=== PATIENT | female | born 1955 | race Hispanic/Latino ===

== ENCOUNTER 2018-11-24 09:45 | Emergency (ER) | payer SELFPAY ==
[2018-11-24] MEDS ORDERED: NACL 0.9% 1000 ML 1,000 ML IV ONE ×2 (10:08→11:07)
--- NOTE | 2018-11-24 10:09 | Emergency Department Report ---
ED Altered Mental Status HPI - General Chief Complaint: Altered Mental Status Stated Complaint: UNRESPONSIVE Time Seen by Provider: 11/24/18 09:45 Source: EMS Mode of arrival: Stretcher Limitations: Altered Mental Status - History of Present Illness Initial Comments: Patient is a 63-year-old female that presents from a psychiatric facility for unresponsiveness. Patient brought in by EMS. Patient at a psychiatric facility for 1013. History of per EMS and sitter. Per EMS patient was found in a wheelchair slumped over. EMS states the patient is responsive to painful stimuli. MD Complaint: altered mental status, decreased responsiveness -: Sudden Severity: severe Consistency of Symptoms: constant - Related Data Home Medications Medication Instructions Recorded Confirmed Last Taken Acetaminophen [Acetaminophen 8 650 mg PO PRN 11/24/18 11/24/18 Unknown Hour] Cyclobenzaprine [Flexeril] 10 mg PO BID PRN 11/24/18 11/24/18 Unknown FLUoxetine HCL [PROzac] 40 mg PO QDAY 11/24/18 11/24/18 Unknown Haloperidol [Haldol] 5 mg PO BID 11/24/18 11/24/18 Unknown Magnesium Hydroxide [Milk of 30 ml PO Q12H 11/24/18 11/24/18 Unknown Magnesia] Montelukast [Singulair] 10 mg PO QPM 11/24/18 11/24/18 Unknown Omeprazole 40 mg PO DAILY 11/24/18 11/24/18 Unknown Ziprasidone [Geodon] 20 mg PO BID 11/24/18 11/24/18 Unknown diphenhydrAMINE [Benadryl CAP] 50 mg PO QHS PRN 11/24/18 11/24/18 Unknown traMADol [Ultram] 50 mg PO Q6HR PRN 11/24/18 11/24/18 Unknown Allergies Allergy/AdvReac Type Severity Reaction Status Date / Time No Known Allergies Allergy Unverified 11/24/18 11:30 ED Review of Systems ROS: Stated complaint: UNRESPONSIVE Other details as noted in HPI Comment: Unobtainable due to pts medical conditions ED Past Medical Hx - Past Medical History Previous Medical History?: Yes Hx Psychiatric Treatment: Yes - Surgical History Past Surgical History?: No Additional Surgical History: unknown due to AMS - Family History Family history: no significant - Social History Smoking Status: Unknown if ever smoked Substance Use Type: None - Medications Home Medications: Home Medications Medication Instructions Recorded Confirmed Last Taken Type Acetaminophen [Acetaminophen 8 650 mg PO PRN 11/24/18 11/24/18 Unknown History Hour] Cyclobenzaprine [Flexeril] 10 mg PO BID PRN 11/24/18 11/24/18 Unknown History FLUoxetine HCL [PROzac] 40 mg PO QDAY 11/24/18 11/24/18 Unknown History Haloperidol [Haldol] 5 mg PO BID 11/24/18 11/24/18 Unknown History Magnesium Hydroxide [Milk of 30 ml PO Q12H 11/24/18 11/24/18 Unknown History Magnesia] Montelukast [Singulair] 10 mg PO QPM 11/24/18 11/24/18 Unknown History Omeprazole 40 mg PO DAILY 11/24/18 11/24/18 Unknown History Ziprasidone [Geodon] 20 mg PO BID 11/24/18 11/24/18 Unknown History diphenhydrAMINE [Benadryl CAP] 50 mg PO QHS PRN 11/24/18 11/24/18 Unknown History traMADol [Ultram] 50 mg PO Q6HR PRN 11/24/18 11/24/18 Unknown History ED Physical Exam - General Limitations: Altered Mental Status, Physical Limitation General appearance: lethargic - Head Head exam: Present: atraumatic, normocephalic - Eye Eye exam: Present: normal appearance, PERRL Pupils: Present: normal accommodation - ENT ENT exam: Present: mucous membranes moist - Neck Neck exam: Present: normal inspection - Respiratory Respiratory exam: Present: normal lung sounds bilaterally. Absent: respiratory distress, wheezes, rales, rhonchi - Cardiovascular Cardiovascular Exam: Present: regular rate, normal rhythm. Absent: systolic murmur, diastolic murmur, rubs, gallop - GI/Abdominal GI/Abdominal exam: Present: soft, normal bowel sounds - Rectal Rectal exam: Present: deferred - Extremities Exam Extremities exam: Present: normal inspection - Back Exam Back exam: Present: normal inspection - Neurological Exam Neurological exam: Present: altered - Expanded Neurological Exam Expanded Best Eye Response (Julio): (2) open to pain Best Motor Response (Julio): (4) withdraws to pain Best Verbal Response (Julio): (2) incomprehsible sounds Julio Total: 8 - Psychiatric Psychiatric exam: Present: normal affect, normal mood - Skin Skin exam: Present: warm, dry, intact, normal color. Absent: rash - Assessment Assessment Interval: Baseline - Level of Consciousness 1a. Level of Consciousness: arousable/minor stimuli - LOC Questions 1b. LOC Questions: answers no questions correctly - LOC Command 1c. LOC Commands: performs tasks correctly - Best Gaze 2. Best Gaze: normal - Visual 3. Visual: no visual loss - Facial Palsy 4. Facial Palsy: normal symmetrical movement - Motor Arm 5a. Motor Arm Left: some gravity effort 5b. Motor Arm Right: some gravity effort - Motor Leg 6a. Motor Leg Left: some gravity effort 6b. Motor Leg Right: some gravity effort - Limb Ataxia 7. Limb Ataxia: absent - Sensory 8. Sensory: normal - Best Language 9. Best Language: no aphasia - Dysarthria 10. Dysarthria: normal - Extinction and Inattention 11. Extinction/Inattention: no abnormality - Scoring Total Score: 11 Stroke Severity: Moderate Stroke ED Course Vital Signs 11/24/18 11/24/18 09:46 10:51 Temperature 97.5 F L Pulse Rate 95 H 101 H Respiratory 16 18 Rate Blood Pressure 148/85 Blood Pressure 137/85 [Left] O2 Sat by Pulse 100 98 Oximetry - Reevaluation(s) Reevaluation #1: Patient more responsive. Patient is lethargic but is answering some simple yes no questions. She is following commands and moving all 4 limbs equally. Patient open eyes to voice 11/24/18 10:54 Patient answered questions more appropriately. Patient is A&O 1. Patient states she's not sure why she was unresponsive. Patient denies taking extra medications. Sitter at bedside states that the patient just arrived last night to [facility] [place] last night.. 11/24/18 11:32 - Consultations Consultation #1: Hospitalist consulted for admission. Hospitalist to admit patient. Hospitalist to assume care patient. 11/24/18 12:05 - Lab Data Result diagrams: 11/24/18 10:14 11/24/18 10:14 Lab Results 11/24/18 11/24/18 11/24/18 Range/Units 09:55 10:14 10:14 WBC 9.0 (4.5-11.0) K/mm3 RBC 4.88 (3.65-5.03) M/mm3 Hgb 14.4 H (10.1-14.3) gm/dl Hct 43.5 H (30.3-42.9) % MCV 89 (79-97) fl MCH 30 (28-32) pg MCHC 33 (30-34) % RDW 15.2 (13.2-15.2) % Plt Count 228 (140-440) K/mm3 Lymph % (Auto) 20.2 (13.4-35.0) % [place] % (Auto) 6.2 (0.0-7.3) % Eos % (Auto) 8.0 H (0.0-4.3) % Baso % (Auto) 0.4 (0.0-1.8) % Lymph # 1.8 (1.2-5.4) K/mm3 [place] # 0.6 (0.0-0.8) K/mm3 Eos # 0.7 H (0.0-0.4) K/mm3 Baso # 0.0 (0.0-0.1) K/mm3 Seg Neutrophils % 65.2 (40.0-70.0) % Seg Neutrophils # 5.9 (1.8-7.7) K/mm3 Sodium 139 (137-145) mmol/L Potassium 4.0 (3.6-5.0) mmol/L Chloride 99.4 (98-107) mmol/L Carbon Dioxide 24 (22-30) mmol/L Anion Gap 20 mmol/L BUN 9 (7-17) mg/dL Creatinine 0.7 (0.7-1.2) mg/dL Estimated GFR > 60 ml/min BUN/Creatinine Ratio 13 % Glucose 117 H (65-100) mg/dL POC Glucose 113 H (70-105) Lactic Acid (0.7-2.0) mmol/L Calcium 9.2 (8.4-10.2) mg/dL Total Bilirubin 0.50 (0.1-1.2) mg/dL AST 24 (5-40) units/L ALT 61 H (7-56) units/L Alkaline Phosphatase 106 (35-129) units/L Troponin T < 0.010 (0.00-0.029) ng/mL Total Protein 7.1 (6.3-8.2) g/dL Albumin 4.0 (3.9-5) g/dL Albumin/Globulin Ratio 1.3 % Urine Color (Yellow) Urine Turbidity (Clear) Urine pH (5.0-7.0) Ur Specific [place] (1.003-1.030) Urine Protein (Negative) mg/dL Urine Glucose (UA) (Negative) mg/dL Urine Ketones (Negative) mg/dL Urine Blood (Negative) Urine Nitrite (Negative) Urine Bilirubin (Negative) Urine Urobilinogen (<2.0) mg/dL Ur Leukocyte Esterase (Negative) Urine WBC (Auto) (0.0-6.0) /HPF Urine RBC (Auto) (0.0-6.0) /HPF Salicylates (2.8-20.0) mg/dL Urine Opiates Screen Urine Methadone Screen Acetaminophen (10.0-30.0) ug/mL Ur Barbiturates Screen Ur Phencyclidine Scrn Ur Amphetamines Screen U Benzodiazepines Scrn Urine Cocaine Screen U Marijuana (THC) Screen Drugs of Abuse Note Plasma/Serum Alcohol (0-0.07) % 11/24/18 11/24/18 11/24/18 Range/Units 10:14 10:14 10:14 WBC (4.5-11.0) K/mm3 RBC (3.65-5.03) M/mm3 Hgb (10.1-14.3) gm/dl Hct (30.3-42.9) % MCV (79-97) fl MCH (28-32) pg MCHC (30-34) % RDW (13.2-15.2) % Plt Count (140-440) K/mm3 Lymph % (Auto) (13.4-35.0) % [place] % (Auto) (0.0-7.3) % Eos % (Auto) (0.0-4.3) % Baso % (Auto) (0.0-1.8) % Lymph # (1.2-5.4) K/mm3 [place] # (0.0-0.8) K/mm3 Eos # (0.0-0.4) K/mm3 Baso # (0.0-0.1) K/mm3 Seg Neutrophils % (40.0-70.0) % Seg Neutrophils # (1.8-7.7) K/mm3 Sodium (137-145) mmol/L Potassium (3.6-5.0) mmol/L Chloride (98-107) mmol/L Carbon Dioxide (22-30) mmol/L Anion Gap mmol/L BUN (7-17) mg/dL Creatinine (0.7-1.2) mg/dL Estimated GFR ml/min BUN/Creatinine Ratio % Glucose (65-100) mg/dL POC Glucose (70-105) Lactic Acid 3.30 H* (0.7-2.0) mmol/L Calcium (8.4-10.2) mg/dL Total Bilirubin (0.1-1.2) mg/dL AST (5-40) units/L ALT (7-56) units/L Alkaline Phosphatase (35-129) units/L Troponin T (0.00-0.029) ng/mL Total Protein (6.3-8.2) g/dL Albumin (3.9-5) g/dL Albumin/Globulin Ratio % Urine Color (Yellow) Urine Turbidity (Clear) Urine pH (5.0-7.0) Ur Specific [place] (1.003-1.030) Urine Protein (Negative) mg/dL Urine Glucose (UA) (Negative) mg/dL Urine Ketones (Negative) mg/dL Urine Blood (Negative) Urine Nitrite (Negative) Urine Bilirubin (Negative) Urine Urobilinogen (<2.0) mg/dL Ur Leukocyte Esterase (Negative) Urine WBC (Auto) (0.0-6.0) /HPF Urine RBC (Auto) (0.0-6.0) /HPF Salicylates < 0.3 L (2.8-20.0) mg/dL Urine Opiates Screen Urine Methadone Screen Acetaminophen < 5.0 L (10.0-30.0) ug/mL Ur Barbiturates Screen Ur Phencyclidine Scrn Ur Amphetamines Screen U Benzodiazepines Scrn Urine Cocaine Screen U Marijuana (THC) Screen Drugs of Abuse Note Plasma/Serum Alcohol (0-0.07) % 11/24/18 11/24/18 11/24/18 Range/Units 10:14 10:17 10:17 WBC (4.5-11.0) K/mm3 RBC (3.65-5.03) M/mm3 Hgb (10.1-14.3) gm/dl Hct (30.3-42.9) % MCV (79-97) fl MCH (28-32) pg MCHC (30-34) % RDW (13.2-15.2) % Plt Count (140-440) K/mm3 Lymph % (Auto) (13.4-35.0) % [place] % (Auto) (0.0-7.3) % Eos % (Auto) (0.0-4.3) % Baso % (Auto) (0.0-1.8) % Lymph # (1.2-5.4) K/mm3 [place] # (0.0-0.8) K/mm3 Eos # (0.0-0.4) K/mm3 Baso # (0.0-0.1) K/mm3 Seg Neutrophils % (40.0-70.0) % Seg Neutrophils # (1.8-7.7) K/mm3 Sodium (137-145) mmol/L Potassium (3.6-5.0) mmol/L Chloride (98-107) mmol/L Carbon Dioxide (22-30) mmol/L Anion Gap mmol/L BUN (7-17) mg/dL Creatinine (0.7-1.2) mg/dL Estimated GFR ml/min BUN/Creatinine Ratio % Glucose (65-100) mg/dL POC Glucose (70-105) Lactic Acid (0.7-2.0) mmol/L Calcium (8.4-10.2) mg/dL Total Bilirubin (0.1-1.2) mg/dL AST (5-40) units/L ALT (7-56) units/L Alkaline Phosphatase (35-129) units/L Troponin T (0.00-0.029) ng/mL Total Protein (6.3-8.2) g/dL Albumin (3.9-5) g/dL Albumin/Globulin Ratio % Urine Color Yellow (Yellow) Urine Turbidity Clear (Clear) Urine pH 8.0 H (5.0-7.0) Ur Specific [place] 1.011 (1.003-1.030) Urine Protein <15 mg/dl (Negative) mg/dL Urine Glucose (UA) Neg (Negative) mg/dL Urine Ketones Neg (Negative) mg/dL Urine Blood Neg (Negative) Urine Nitrite Neg (Negative) Urine Bilirubin Neg (Negative) Urine Urobilinogen < 2.0 (<2.0) mg/dL Ur Leukocyte Esterase Neg (Negative) Urine WBC (Auto) < 1.0 (0.0-6.0) /HPF Urine RBC (Auto) 2.0 (0.0-6.0) /HPF Salicylates (2.8-20.0) mg/dL Urine Opiates Screen Presumptive negative Urine Methadone Screen Presumptive negative Acetaminophen (10.0-30.0) ug/mL Ur Barbiturates Screen Presumptive negative Ur Phencyclidine Scrn Presumptive negative Ur Amphetamines Screen Presumptive negative U Benzodiazepines Scrn Presumptive negative Urine Cocaine Screen Presumptive negative U Marijuana (THC) Screen Presumptive negative Drugs of Abuse Note Disclamer Plasma/Serum Alcohol < 0.01 (0-0.07) % 11/24/18 Range/Units 11:43 WBC (4.5-11.0) K/mm3 RBC (3.65-5.03) M/mm3 Hgb (10.1-14.3) gm/dl Hct (30.3-42.9) % MCV (79-97) fl MCH (28-32) pg MCHC (30-34) % RDW (13.2-15.2) % Plt Count (140-440) K/mm3 Lymph % (Auto) (13.4-35.0) % [place] % (Auto) (0.0-7.3) % Eos % (Auto) (0.0-4.3) % Baso % (Auto) (0.0-1.8) % Lymph # (1.2-5.4) K/mm3 [place] # (0.0-0.8) K/mm3 Eos # (0.0-0.4) K/mm3 Baso # (0.0-0.1) K/mm3 Seg Neutrophils % (40.0-70.0) % Seg Neutrophils # (1.8-7.7) K/mm3 Sodium (137-145) mmol/L Potassium (3.6-5.0) mmol/L Chloride (98-107) mmol/L Carbon Dioxide (22-30) mmol/L Anion Gap mmol/L BUN (7-17) mg/dL Creatinine (0.7-1.2) mg/dL Estimated GFR ml/min BUN/Creatinine Ratio % Glucose (65-100) mg/dL POC Glucose (70-105) Lactic Acid 1.70 (0.7-2.0) mmol/L Calcium (8.4-10.2) mg/dL Total Bilirubin (0.1-1.2) mg/dL AST (5-40) units/L ALT (7-56) units/L Alkaline Phosphatase (35-129) units/L Troponin T (0.00-0.029) ng/mL Total Protein (6.3-8.2) g/dL Albumin (3.9-5) g/dL Albumin/Globulin Ratio % Urine Color (Yellow) Urine Turbidity (Clear) Urine pH (5.0-7.0) Ur Specific [place] (1.003-1.030) Urine Protein (Negative) mg/dL Urine Glucose (UA) (Negative) mg/dL Urine Ketones (Negative) mg/dL Urine Blood (Negative) Urine Nitrite (Negative) Urine Bilirubin (Negative) Urine Urobilinogen (<2.0) mg/dL Ur Leukocyte Esterase (Negative) Urine WBC (Auto) (0.0-6.0) /HPF Urine RBC (Auto) (0.0-6.0) /HPF Salicylates (2.8-20.0) mg/dL Urine Opiates Screen Urine Methadone Screen Acetaminophen (10.0-30.0) ug/mL Ur Barbiturates Screen Ur Phencyclidine Scrn Ur Amphetamines Screen U Benzodiazepines Scrn Urine Cocaine Screen U Marijuana (THC) Screen Drugs of Abuse Note Plasma/Serum Alcohol (0-0.07) % - EKG Data -: EKG Interpreted by [place] EKG shows normal: sinus rhythm, axis, intervals, QRS complexes, ST-T waves Rate: normal - Radiology Data Radiology results: report reviewed CT HEAD WITHOUT CONTRAST INDICATION: Altered mental status. COMPARISON: 02/03/2012. FINDINGS: Noncontrast head CT again demonstrates symmetric, age-appropriate ventricles and sulci and few bilateral basal ganglia lacunar infarcts measuring 4-5 mm as on axial images 25-26. Slight periventricular hypodensities. No definite acute infarct, hemorrhage, mass effect or midline shift. No abnormal extra axial fluid collections. Normal posterior fossa with preserved basilar cisterns. Normal imaged eye globes. Mild left frontal sinus mucosal thickening now noted. Clear remainder imaged paranasal sinuses in this patient with sinus surgery changes again noted. Normal calvarium and scalp. CONCLUSION: No acute intracranial CT abnormality with slight left frontal sinus mucosal thickening now seen, as described. Please correlate. PORTABLE CHEST INDICATION: Altered mental status. COMPARISON: 02/16/2012 CXR. FINDINGS: Portable, frontal chest radiograph again demonstrates a normal cardiomediastinal silhouette. Lung markings now mildly prominent, nonspecific and may in part be technical. Subtle left upper to midlung peripheral haziness, presumed slight atelectasis or infiltrate. No pleural effusions or CHF. Few bony degenerative changes. EKG leads. Stable probable cholecystectomy clips. CONCLUSION: Findings, as described. - Medical Decision Making Patient is a 63-year-old female presents emergency room with unresponsive episod e. Patient given fluids and time and patient became more arousable. Patient's labs are unremarkable except for lactic acidosis. It is unclear what has caused this patient's unresponsive episode. Critical Care Time: Yes Critical care attestation.: If time is entered above; I have spent that time in minutes in the direct care of this critically ill patient, excluding procedure time. Critical Care Time: 45 minutes ED Disposition Clinical Impression: Unresponsive state, Lactic acid acidosis Altered mental state Qualifiers: Altered mental status type: unspecified Qualified Code(s): R41.82 - Altered mental status, unspecified Disposition: DC-09 OP ADMIT IP TO THIS HOSP Is pt being admited?: Yes Does the pt Need Aspirin: No Condition: Critical Time of Disposition: 12:38
[2018-11-24 10:40] LABS: Basophils % (Auto) 0.4 % (0.0-1.8); Eosinophils # (Auto) 0.7 K/mm3 (0.0-0.4); Hematocrit 43.5 % (30.3-42.9); Hemoglobin 14.4 gm/dl (10.1-14.3); Lymphocytes # (Auto) 1.8 K/mm3 (1.2-5.4); Lymphocytes % (Auto) 20.2 % (13.4-35.0); Mean Corpuscular HGB Conc 33 % (30-34); Mean Corpuscular Volume 89 fl (79-97); Monocytes # (Auto) 0.6 K/mm3 (0.0-0.8); Monocytes % (Auto) 6.2 % (0.0-7.3); Platelet Count 228 K/mm3 (140-440); Red Blood Count 4.88 M/mm3 (3.65-5.03); Red Cell Distribution Width 15.2 % (13.2-15.2)
--- NOTE | 2018-11-24 10:49 | Cat Scan Report ---
CT HEAD WITHOUT CONTRAST INDICATION: Altered mental status. COMPARISON: 02/03/2012. FINDINGS: Noncontrast head CT again demonstrates symmetric, age-appropriate ventricles and sulci and few bilateral basal ganglia lacunar infarcts measuring 4-5 mm as on axial images 25-26. Slight periventricular hypodensities. No definite acute infarct, hemorrhage, mass effect or midline shift. No abnormal extra axial fluid collections. Normal posterior fossa with preserved basilar cisterns. Normal imaged eye globes. Mild left frontal sinus mucosal thickening now noted. Clear remainder imaged paranasal sinuses in this patient with sinus surgery changes again noted. Normal calvarium and scalp. CONCLUSION: No acute intracranial CT abnormality with slight left frontal sinus mucosal thickening now seen, as described. Please correlate. Thank you for the opportunity to participate in this patient's care.
[2018-11-24 11:01] LABS: Alanine Aminotransferase 61 units/L (7-56); BUN/Creatinine Ratio 13; Blood Urea Nitrogen 9 mg/dL (7-17); Calcium 9.2 mg/dL (8.4-10.2); Hemolysis Index 10
[2018-11-24 11:20] LABS: Bilirubin,Urine NEG (Negative); Blood,Urine NEG (Negative); Color,Urine Yellow (Yellow); Protein,Urine <15 mg/dL mg/dL (Negative); Urobilinogen,Urine < 2.0 mg/dL (<2.0); WBC,Urine < 1.0 /HPF (0.0-6.0)
[2018-11-24] MEDS ORDERED: MAXIPIME/NS 2 GM/100 ML 2 GM/100 ML BAG IV ONE (11:23)
[2018-11-24 11:27] LABS: Amphetamine Screen,Urine PRESUMPTIVE NEGATIVE; Benzodiazepines Screen,Urine PRESUMPTIVE NEGATIVE; Cannabinoid Screen,Urine PRESUMPTIVE NEGATIVE; Cocaine Screen,Urine PRESUMPTIVE NEGATIVE; Methadone Screen,Urine PRESUMPTIVE NEGATIVE; Opiate Screen,Urine PRESUMPTIVE NEGATIVE
--- NOTE | 2018-11-24 11:39 | XRay Report ---
PORTABLE CHEST INDICATION: Altered mental status. COMPARISON: 02/16/2012 CXR. FINDINGS: Portable, frontal chest radiograph again demonstrates a normal cardiomediastinal silhouette. Lung markings now mildly prominent, nonspecific and may in part be technical. Subtle left upper to midlung peripheral haziness, presumed slight atelectasis or infiltrate. No pleural effusions or CHF. Few bony degenerative changes. EKG leads. Stable probable cholecystectomy clips. CONCLUSION: Findings, as described. Thank you for the opportunity to participate in this patient's care.
[2018-11-24 19:08] VITALS: BP 146/89
--- NOTE | 2018-11-24 20:25 | Event Note ---
Date: 11/24/18 63 YO Female with Major Depression currently an inpatient under 1013. Pt transported to [facility] for evaluation. Pt seen and evaluated in ED. Pt found to have no significant findings on physical exam. Pt is tearful, and distressed regarding placing her father in hospice care. Pt acknowledges feeling helpless, and hopeless and has not been evaluated by a Psychiatrist. Pt medically optimized and back to usual state of health. No active medical findings. Pt medically optimized. Pt discharged to inpatient Psychiatry. ED Physical Exam - General Limitations: General appearance: Alert,Oriented x3 - Head Head exam: Present: atraumatic, normocephalic - Eye Eye exam: Present: normal appearance, PERRL Pupils: Present: normal accommodation - ENT ENT exam: Present: mucous membranes moist - Neck Neck exam: Present: normal inspection - Respiratory Respiratory exam: Present: normal lung sounds bilaterally. Absent: respiratory distress, wheezes, rales, rhonchi - Cardiovascular Cardiovascular Exam: Present: regular rate, normal rhythm. Absent: systolic murmur, diastolic murmur, rubs, gallop - GI/Abdominal GI/Abdominal exam: Present: soft, normal bowel sounds - Rectal Rectal exam: Present: deferred - Extremities Exam Extremities exam: Present: normal inspection - Back Exam Back exam: Present: normal inspection - Neurological Exam Neurological exam: Present: altered - Expanded Neurological Exam [place] Total: 15 - Psychiatric Psychiatric exam: Present: normal affect, normal mood - Skin Skin exam: Present: warm, dry, intact, normal color. Absent: rash -
== END 2018-11-24 20:00 | disposition admitted as inpatient to this hospital (09) ==
LOC: EEVIPCON 09:45 → ED 09:45
DX: E87.2 Acidosis (principal); R46.4 Slowness and poor responsiveness
CPT/HCPCS: 70450; 71045; 80053; 80307; 81001; 82140; 82962; 84484; 85025; 87040; 87086; 93005; 93010; 96361; 96365; 99285; G0480; J0692; J7030; 80320